=== PATIENT | female | born 1960 | race Caucasian/White ===

== ENCOUNTER 2022-06-14 09:55 | Day surgery (SDC) | payer OTHER ==
[~2022-06-14] VITALS: Ht 124.5 cm; Wt 107.0 kg
[2022-06-14] MEDS ORDERED: diphenhydrAMINE 50 MG/ML VIAL ONE (10:47)
[2022-06-14] MEDS ORDERED: MIDAZOLAM 2 MG/2 ML VIAL ONE (10:48)
[2022-06-14] MEDS ORDERED: fentaNYL citrate 0.05 MG/ML VIAL ONE (10:48)
[2022-06-14] MEDS ORDERED: fentaNYL citrate 0.05 MG/ML VIAL IVP ONE (14:45)
[2022-06-14] MEDS ORDERED: MIDAZOLAM 2 MG/2 ML VIAL IVP ONE (14:45)
== END 2022-06-14 12:32 | disposition home or self-care (01) ==
LOC: MOR 09:55 → MMU 09:57 → MOR 12:32
PROVIDERS: ATTEND Internal Medicine Gastroenterology
DX: K74.60 Unspecified cirrhosis of liver (principal); I85.10 Secondary esophageal varices without bleeding; K31.7 Polyp of stomach and duodenum; K22.2 Esophageal obstruction; I10 Essential (primary) hypertension; E78.5 Hyperlipidemia, unspecified; E11.9 Type 2 diabetes mellitus without complications; M19.90 Unspecified osteoarthritis, unspecified site; E66.9 Obesity, unspecified; K21.9 Gastro-esophageal reflux disease without esophagitis; Z20.822 Contact with and (suspected) exposure to COVID-19; Z79.82 Long term (current) use of aspirin; Z68.44 Body mass index [BMI] 60.0-69.9, adult; Z79.899 Other long term (current) drug therapy
CPT/HCPCS: 43251; 87426; 88305; 88312; 88313; 88342; J2250; J3010; J1200

== ENCOUNTER 2023-06-01 08:46 | Day surgery (SDC) | payer OTHER ==
[~2023-06-01] VITALS: Ht 149.9 cm; Wt 103.9 kg
[2023-06-01 10:19] LABS: BASOPHILS % (AUTO) 0.5 % (0.0-2.0); EOSINOPHILS # (AUTO) 0.1 K/uL (0-0.4); EOSINOPHILS % (AUTO) 1.9 % (0.0-4.0); HEMATOCRIT 33.8 % (36-48); HEMOGLOBIN 12.3 g/dL (12.0-16.0); LYMPHOCYTES # (AUTO) 1.1 K/uL (2.5-16.5); LYMPHOCYTES % (AUTO) 26.9 % (20.5-51.1); MEAN CORPUSCULAR HEMOGLOBIN 35 pg (27-31); MEAN CORPUSCULAR HGB CONC 36 g/dL (33-37); MEAN CORPUSCULAR VOLUME 96.8 fL (80-94); MONOCYTES # (AUTO) 0.4 K/uL (0.8-1.0); MONOCYTES % (AUTO) 9.2 % (1.7-9.3); NEUTROPHILS # (AUTO) 2.5 K/uL (1.8-7.7); NEUTROPHILS % (AUTO) 61.5 % (42.2-75.2); PLATELET COUNT (AUTO) 92 K/uL (140-450); RED BLOOD CELL COUNT(AUTO) 3.49 MIL/uL (4.20-5.40); RED CELL DISTRIBUTION WIDTH 13.6 % (11.6-13.7)
[2023-06-01] MEDS ORDERED: fentaNYL citrate 0.05 MG/ML VIAL ONE (10:26)
[2023-06-01 10:28] LABS: INR 1.06 (0.8-1.2); PARTIAL THROMBOPLASTIN TIME 25.9 secs (22-35.6); PROTHROMBIN TIME 11.1 secs (10.8-13.4)
[2023-06-01] MEDS: LIDOCAINE 2% 1000 MG/50 ML VIAL INJ ONE (10:44)
[2023-06-01] MEDS: fentaNYL citrate 0.05 MG/ML VIAL IVP ONE (10:45)
[2023-06-01] MEDS ORDERED: NACL 0.9% 500 ML IV SCH (11:13)
[2023-06-01] MEDS ORDERED: ACETAMINOPHEN EXTRA STRENGTH 500 MG TAB ONE (12:30)
[2023-06-01] MEDS ORDERED: ACETAMINOPHEN EXTRA STRENGTH 500 MG TAB PO ONE (12:45)
== END 2023-06-01 13:10 | disposition home or self-care (01) ==
LOC: MDS 08:46 → MMU 08:47 → MDS 13:10
PROVIDERS: ATTEND Internal Medicine Gastroenterology
DX: K75.81 Nonalcoholic steatohepatitis (NASH) (principal); I10 Essential (primary) hypertension; D64.9 Anemia, unspecified; E11.40 Type 2 diabetes mellitus with diabetic neuropathy, unspecified; E78.5 Hyperlipidemia, unspecified; Z79.899 Other long term (current) drug therapy; Z98.890 Other specified postprocedural states
CPT/HCPCS: 36415; 47000; 76942; 82948; 85025; 85610; 85730; 88307; 88313; J2001; J3010; Q0092